=== PATIENT | female | born 1985 | race Caucasian/White ===

== ENCOUNTER 2018-02-03 05:40 | Inpatient (IN) | payer OTHER ==
[2018-02-03] MEDS ORDERED: CITRIC ACID/SODIUM CITRATE 30 ML UNIT-DOSE CUP PO ONE (06:15)
[2018-02-03 06:25] VITALS: BMI 23.9
[2018-02-03] MEDS ORDERED: ELECTROLYTE-148 SOLN 500 ML IV ONE (06:30)
[2018-02-03] MEDS ORDERED: ELECTROLYTE-148 SOLN 1,000 ML IV SCH (07:00)
--- NOTE | 2018-02-03 07:56 | HP ---
Past Medical History - Primary Care Physician PCP:: Jonathon Allison - Admission Chief Complaint: 39 weeks, previous c/s, request of repeat c/s History of Present Illness: 33 yo f 39 weeks, with previous c/s, requesting repeat c/s, risks discussed with patient. cx clp, vx -3 mi, fhr cat 1 History Source: Patient Limitations to Obtaining History: Language Barrier - Past Medical History ...: 2 ...Para: 1 ...Term: 1 ...: 0 ...Spon : 0 ...Induced : 0 ...Multiple Gestation: 0 ...LMP: 05/08/17 ... Weeks Gestation by Dates: 39 ...EDC by Dates: 02/12/18 ...EDC by Sono: 02/10/18 - Past Surgical History Past Surgical History: Yes: Hx Myomectomy: No Hx Transabdominal Cerclage: No - Smoking History Smoking history: Never smoked Have you smoked in the past 12 months: No - Alcohol/Substance Use Hx Alcohol Use: No - Social History Usual Living Arrangement: Yes: With Spouse History of Recent Travel: No Home Medications - Allergies Allergies/Adverse Reactions: Allergies Allergy/AdvReac Type Severity Reaction Status Date / Time No Known Allergies Allergy Verified 02/03/18 06:10 - Home Medications Home Medications: Ambulatory Orders NK [No Known Home Medication] 02/03/18 Review of Systems - Review of Systems Constitutional: reports: No Symptoms Eyes: reports: No Symptoms HENT: reports: No Symptoms Neck: reports: No Symptoms Cardiovascular: reports: No Symptoms Respiratory: reports: No Symptoms Gastrointestinal: reports: No Symptoms Genitourinary: reports: No Symptoms Breasts: reports: No Symptoms Reported Musculoskeletal: reports: No Symptoms Integumentary: reports: No Symptoms Neurological: reports: No Symptoms Endocrine: reports: No Symptoms Hematology/Lymphatic: reports: No Symptoms Psychiatric: reports: No Symptoms Physical Exam - Maternity Vital Signs: Vital Signs Temperature 98.3 F 02/03/18 05:40 Pulse Rate 98 H 02/03/18 05:40 Respiratory Rate 20 02/03/18 05:40 Blood Pressure 111/67 02/03/18 05:40 O2 Sat by Pulse Oximetry (%) Constitutional: Yes: Well Nourished, No Distress, Calm Eyes: Yes: WNL, Conjunctiva Clear, EOM Intact HENT: Yes: WNL, Atraumatic, Normocephalic Neck: Yes: WNL, Supple, Trachea Midline Cardiovascular: Yes: WNL, Regular Rate and Rhythm Breast(s): Yes: WNL - Abdominal Exam/OB Fundal Height: 40 Number of Fetuses: Single Presentation: Vertex Contractions: Yes Regularity: Irritability Intensity: Unaware Monitor Mode: External Heart Rate Location: [facility] Category: I Accelerations: Uniform Decelerations: None - Vaginal Exam/OB Vaginal Bleediing: No Speculum Exam: No Dilatation (cm): closed Effacement (%): 0 Amniotic Membrane Status: Intact Presentation: Vertex/Position Station: -3 - Physical Exam Musculoskeletal: Yes: WNL Edema: Yes Edema: LLE: Trace, RLE: Trace Deep Tendon Reflex Grade: Normal +2 Psychiatric: Yes: WNL Hemorrhage Risk Assessment - Risk Factors Medium Risk Factors: Yes: History of previous hemorrhage Risk Score: 2 Risk Level: High Risk Problem List - Problems (1) with 39 completed weeks gestation Code(s): Z3A.39 - 39 WEEKS GESTATION OF (2) Previous section complicating Code(s): O34.219 - MATERNAL CARE FOR UNSP TYPE SCAR FROM PREVIOUS DEL Assessment/Plan repeat c/s, risks c/s discussed , declined
[2018-02-03] MEDS ORDERED: ceFAZolin SODIUM 1 GM VIAL ONE ×3 (08:01→23:59)
[2018-02-03] MEDS ORDERED: OXYTOCIN 10 UNITS/ML VIAL ONE (08:12)
[2018-02-03] MEDS ORDERED: oxyCODONE HCL 5 MG TABLET PO PRN ×2 (08:56)
[2018-02-03] MEDS ORDERED: BENZOCAINE 20% 57 GM BOTTLE TP PRN (08:56)
[2018-02-03] MEDS ORDERED: METHYLERGONOVINE MALEATE 0.2 MG/1 ML AMP IM PRN (08:56)
[2018-02-03] MEDS ORDERED: IBUPROFEN 800 MG/8 ML IJ IVPB PRN (08:56)
[2018-02-03] MEDS ORDERED: BENZOCAINE 28 GM HEMORRHOIDAL OINTMENT PR PRN (08:56)
[2018-02-03] MEDS ORDERED: WITCH HAZEL 50% (TUCKS) 40 PAD/JAR PAD TP PRN (08:56)
[2018-02-03] MEDS ORDERED: diphenhydrAMINE HCL 25 MG CAPSULE (FP) PO PRN (08:56)
[2018-02-03] MEDS ORDERED: OXYTOCIN 20 UNITS in 0.9% NS 20 UNIT/1,000 ML INFUS.BAG IV SCH (09:00)
--- NOTE | 2018-02-03 09:37 | OP ---
DATE OF OPERATION: 02/03/2018 PREOPERATIVE DIAGNOSIS: , 39 weeks, previous section, request of repeat section. POSTOPERATIVE DIAGNOSIS: , 39 weeks, previous section, request of repeat section. PROCEDURE: Repeat low segment transverse section. SURGEON: Jonathon Allison MD EYEGLASS MAKER: DORA Taylor ANESTHESIA: Spinal. ANESTHESIOLOGIST: ESTIMATED BLOOD LOSS: 500 mL. OPERATION: The patient was taken to the operating room under adequate spinal anesthesia. Abdomen and perineum were prepped and draped. Pfannenstiel abdominal skin incision was made. Abdominal wall was cut layer by layer until peritoneum was exposed and incised. Upon entering the abdominal cavity, lower uterine segment was identified, and uterovesical fold of peritoneum was established, bladder was pushed down. Then, with the lower blade of the Fenwick retractor in the pelvis, a low transverse uterine incision was made. This incision extended laterally. Amniotic sac was entered. Clear fluid, head delivered from right occiput transverse position. Nasopharynx was suctioned, and live baby boy was delivered without any difficulty. Placenta was delivered manually. Uterine cavity was cleaned of all remaining tissue. Uterine incision was closed using 2 layers, 1st layer with 0 Biosyn continuous suture, the 2nd layer with 0 Biosyn imbricating the 1st layer. Bladder flap was closed with 0 Biosyn continuous suture. Both tubes and ovaries were checked, were normal. No active bleeding was seen. All the lap pad, sponge, and instrument counts were correct. Then, peritoneum was closed with 0 Biosyn continuous suture, muscles were brought together with interrupted sutures of 0 Biosyn, fascia was closed with 0 Biosyn continuous suture, subcutaneous fat with interrupted suture of 0 Biosyn, and the skin was closed with ousmane. Patient tolerated the procedure well, left the OR in good condition. Heather [id number]
[2018-02-03] MEDS: ONDANSETRON 4 MG/2 ML VIAL IVPUSH PRN ×2 (09:45→17:06)
[2018-02-03] MEDS ORDERED: DEXTROSE 5%-WATER - 50 ML IVPB ONE ×2 (15:27→23:59)
[2018-02-03] MEDS: CEFAZOLIN 1 GM in DEXTROSE 5%-WATER - 50 ML IVPB SCH (15:36)
[2018-02-03] MEDS: DEXTROSE 5%-LACTATED RINGERS 1,000 ML IV SCH (17:39)
[2018-02-04] MEDS: CEFAZOLIN 1 GM in DEXTROSE 5%-WATER - 50 ML IVPB SCH (00:04)
[2018-02-04] MEDS: ACETAMINOPHEN 325 MG TABLET (FP) PO PRN ×2 (08:18→22:00)
[2018-02-04] MEDS: SIMETHICONE 80 MG TAB.CHEW (FP) PO PRN ×2 (08:18→22:00)
[2018-02-04] MEDS: IBUPROFEN 600 MG TABLET (FP) PO PRN ×2 (08:18→22:00)
--- NOTE | 2018-02-04 08:25 | PN ---
Post Progress Note - Subjective Subjective: 33 yo Para 2 status post repeat , seen and evaluated. She's lying comfortably in bed. Post Day: 1 Type of Delivery: Repeat C/S Vital Signs: Vital Signs Temperature 98.2 F 02/04/18 08:05 Pulse Rate 80 02/04/18 08:05 Respiratory Rate 18 02/04/18 08:05 Blood Pressure 106/66 02/04/18 08:05 O2 Sat by Pulse Oximetry (%) Breast Exam: Yes: Soft Uterus: Yes: Fundus below umbilicus Incision: Yes: Dressing dry and intact Abdomen/GI: Yes: Abdomen soft, Tolerating PO Lochia: Yes: Rubra Lochia, amount: Small Extremities: Yes: Calves non-tender Perineum: Yes: Intact Activity: Ambulating Problem List - Problems (1) Status post repeat low transverse section Code(s): Z98.891 - HISTORY OF UTERINE SCAR FROM PREVIOUS SURGERY Assessment/Plan Status post repeat Stable Ambulation Analgesia as needed Continue routine post op care
[2018-02-04 08:48] LABS: BASO % 0.6 % (0-2.0); EOS % 0.2 % (0-4.5); HEMATOCRIT 38.3 % (32.4-45.2); HEMOGLOBIN 12.4 GM/dL (10.7-15.3); LYMPH % 9.6 % (8-40); MCH 29.5 pg (25.7-33.7); MCHC 32.4 g/dl (32.0-36.0); MEAN CELL VOLUME 90.9 fl (80-96); MONO % 9.9 % (3.8-10.2); NEUT % 79.7 % (42.8-82.8); PLATELET COUNT 216 K/MM3 (134-434); RBC 4.21 M/mm3 (3.60-5.2); RDW 13.9 % (11.6-15.6); WHITE BLOOD COUNT 15.5 K/mm3 (4.0-10.0)
[2018-02-04] MEDS ORDERED: BISACODYL 10 MG SUPP.RECT RC PRN (08:56)
[2018-02-04] MEDS ORDERED: DIPHTH,PERTUSS(ACELL),TET 0.5 ML DISP.SYRIN IM ONE (10:00)
[2018-02-04] MEDS: ENOXAPARIN NA (PORCINE) 40 MG/0.4 ML DISP.SYRIN SQ SCH (10:33)
[2018-02-04] MEDS: DEXTROSE 5%-LACTATED RINGERS 1,000 ML IV SCH (21:47)
--- NOTE | 2018-02-05 02:53 | PN ---
Post Progress Note - Subjective Subjective: 33 yo Para 2 status post repeat seen and evaluated. Doing well. Post Day: 2 Type of Delivery: Repeat C/S Vital Signs: Vital Signs Temperature 98.7 F 02/04/18 22:00 Pulse Rate 78 02/04/18 22:00 Respiratory Rate 18 02/04/18 22:00 Blood Pressure 106/68 02/04/18 22:00 O2 Sat by Pulse Oximetry (%) Breast Exam: Yes: Soft Uterus: Yes: Fundus Firm Incision: Yes: Dressing dry and intact Abdomen/GI: Yes: Abdomen soft, Tolerating PO Lochia: Yes: Rubra Lochia, amount: Small Extremities: Yes: Calves non-tender Activity: Ambulating - Labs Labs: CBC WBC 15.5 K/mm3 (4.0-10.0) H 02/04/18 08:00 RBC 4.21 M/mm3 (3.60-5.2) 02/04/18 08:00 Hgb 12.4 GM/dL (10.7-15.3) 02/04/18 08:00 Hct 38.3 % (32.4-45.2) 02/04/18 08:00 MCV 90.9 fl (80-96) 02/04/18 08:00 MCH 29.5 pg (25.7-33.7) 02/04/18 08:00 MCHC 32.4 g/dl (32.0-36.0) 02/04/18 08:00 RDW 13.9 % (11.6-15.6) 02/04/18 08:00 Plt Count 216 K/MM3 (134-434) 02/04/18 08:00 MPV 9.0 fl (7.5-11.1) 02/04/18 08:00 Absolute Neuts (auto) 12.4 K/mm3 (1.5-8.0) H 02/04/18 08:00 Neutrophils % 79.7 % (42.8-82.8) 02/04/18 08:00 Lymphocytes % 9.6 % (8-40) D 02/04/18 08:00 Monocytes % 9.9 % (3.8-10.2) 02/04/18 08:00 Eosinophils % 0.2 % (0-4.5) 02/04/18 08:00 Basophils % 0.6 % (0-2.0) 02/04/18 08:00 Nucleated RBC % 0 % (0-0) 02/04/18 08:00 Problem List - Problems (1) Status post repeat low transverse section Code(s): Z98.891 - HISTORY OF UTERINE SCAR FROM PREVIOUS SURGERY Assessment/Plan Status post repeat Stable Ambulation Analgesia as needed Continue routine post op care
--- NOTE | 2018-02-05 08:09 | PN ---
Progress Note, Physician Chief Complaint: s.p c section post op day one History of Present Illness: under spinal anesthesia and duramorph for post op pain control - Current Medication List Current Medications: Active Medications Acetaminophen (Tylenol -) 650 mg PO Q4H PRN PRN Reason: PAIN Last Admin: 02/04/18 22:00 Dose: 650 mg Benzocaine (Americaine 20% Norman -) 1 spray TP PRN PRN PRN Reason: Pain - Topical Benzocaine (Americaine Ointment -) 1 applic W[place] PRN PRN PRN Reason: Pain - Topical Bisacodyl (Dulcolax Suppository -) 10 mg RC PRN PRN PRN Reason: CONSTIPATION Diphenhydramine HCl (Benadryl -) 25 mg PO Q8H PRN PRN Reason: FOR ITCHING Enoxaparin Sodium (Lovenox -) 40 mg SQ DAILY NICOLE Last Admin: 02/04/18 10:33 Dose: 40 mg Ibuprofen (Motrin -) 600 mg PO Q4H PRN PRN Reason: PAIN LEVEL 1 - 3 Last Admin: 02/04/18 22:00 Dose: 600 mg Methylergonovine Maleate (Methergine Injection -) 0.2 mg IM Q4H PRN PRN Reason: EXCESSIVE BLEEDING Oxycodone HCl (Roxicodone -) 5 mg PO Q4H PRN PRN Reason: PAIN LEVEL 4 - 6 Oxycodone HCl (Roxicodone -) 10 mg PO Q4H PRN PRN Reason: PAIN LEVEL 7 - 10 Senna/Docusate Sodium (Pericolace -) 2 tablet PO HS PRN PRN Reason: CONSTIPATION Simethicone (Mylicon -) 80 mg PO Q4H PRN PRN Reason: GAS Last Admin: 02/04/18 22:00 Dose: 80 mg Witch Minerva/Glycerin (Tucks Pads -) 1 pad TP PRN PRN PRN Reason: Pain - Topical - Objective Vital Signs: Vital Signs Temperature 98.7 F 02/04/18 22:00 Pulse Rate 78 02/04/18 22:00 Respiratory Rate 18 02/04/18 22:00 Blood Pressure 106/68 02/04/18 22:00 O2 Sat by Pulse Oximetry (%) Constitutional: Yes: Well Nourished Cardiovascular: Yes: WNL Respiratory: Yes: WNL Gastrointestinal: Yes: WNL Labs: CBC, BMP 02/04/18 08:00 Assessment/Plan no adverse effects of anesthetic, no complaints, pain controlled,
[2018-02-05] MEDS: ENOXAPARIN NA (PORCINE) 40 MG/0.4 ML DISP.SYRIN SQ SCH (10:13)
[2018-02-05] MEDS: ACETAMINOPHEN 325 MG TABLET (FP) PO PRN ×2 (10:23→17:30)
[2018-02-05] MEDS: IBUPROFEN 600 MG TABLET (FP) PO PRN ×2 (10:23→17:30)
[2018-02-05] MEDS: SIMETHICONE 80 MG TAB.CHEW (FP) PO PRN ×2 (10:24→17:31)
[2018-02-05] MEDS ORDERED: SENNOSIDES/DOCUSATE COMBO (SENNA PLUS) TABLET (UD) PO PRN (22:00)
--- NOTE | 2018-02-06 06:18 | DS ---
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 Vital Signs: Vital Signs Temperature 98.6 F 02/05/18 22:00 Pulse Rate 62 02/05/18 22:00 Respiratory Rate 18 02/05/18 22:00 Blood Pressure 111/67 02/05/18 22:00 O2 Sat by Pulse Oximetry (%) Constitutional: Yes: Well Nourished Eyes: Yes: Conjunctiva Clear HENT: Yes: Atraumatic Neck: Yes: Supple Cardiovascular: Yes: Regular Rate and Rhythm Respiratory: Yes: Regular Gastrointestinal: Yes: Normal Bowel Sounds ...Rectal Exam: Yes: WNL Renal/: Yes: WNL Pelvis: Yes: WNL External Genitalia: Yes: Normal Vaginal Exam: Yes: Normal Cervix: Yes: Normal Uterus: Yes: Normal Wound/Incision: Yes: Well Approximated, [place] Intact Neurological: Yes: Alert, Oriented ...Motor Strength: WNL Psychiatric: Yes: Alert, Oriented Labs: CBC, BMP 02/04/18 08:00 Delivery - Delivery Type of Anesthesia: Spinal Episiotomy/Laceration: None EBL (cc): 600 Delivery, Single - Stages of Labor Date of Delivery: 02/03/18 Time of Delivery: 08:09 Time Placenta Delivered: 08:11 - Condition of Outside Operator/Case Maker Present: Yes Name: Jose Kenyon Infant Gender: Female Weight: 7 lb 6 oz Position: Left, OT Total Hours ROM (Hrs/Mins): 1 min - 1 Minute Total Score: 9 5 Minutes Total Score: 9 - Feeding Plan Initial Plan: Elected not to breastfeed exclusively throughout hospitalization Discharge Summary Reason For Visit: REPEAT Current Active Problems with 39 completed weeks gestation (Acute) Previous section complicating (Acute) Status post repeat low transverse section (Acute) Procedures: Principal: delivery Hospital Course: Routine post op care. No blood transfusion nor additional dosage of antibiotic required. Condition: Good - Instructions Diet, Activity, Other Instructions: Regular diet No driving, no lifting x 4 weeks F/U in clinic in 1 week Disposition: HOME - Home Medications Comprehensive Discharge Medication List: Ambulatory Orders NK [No Known Home Medication] 02/03/18
[2018-02-06 07:59] LABS: BASO % 0.8 % (0-2.0); HEMOGLOBIN 11.7 GM/dL (10.7-15.3); LYMPH % 14.2 % (8-40); MCH 30.5 pg (25.7-33.7); MCHC 33.6 g/dl (32.0-36.0); MEAN CELL VOLUME 90.9 fl (80-96); MEAN PLT VOLUME 8.9 fl (7.5-11.1); MONO % 10.1 % (3.8-10.2); NEUT % 73.9 % (42.8-82.8); PLATELET COUNT 251 K/MM3 (134-434); RBC 3.85 M/mm3 (3.60-5.2); RDW 13.4 % (11.6-15.6); WHITE BLOOD COUNT 8.6 K/mm3 (4.0-10.0)
[2018-02-06 09:31] VITALS: BP 118/73; PULSE 88; TEMP 98.5
[2018-02-06] MEDS: ENOXAPARIN NA (PORCINE) 40 MG/0.4 ML DISP.SYRIN SQ SCH (10:16)
[2018-02-06] MEDS: ACETAMINOPHEN 325 MG TABLET (FP) PO PRN (10:18)
--- NOTE | 2018-02-14 18:20 | PATH ---
Surgical Pathology Report Patient Name: DALJIT HERNANDEZ [facility]. Rec. #: [id number] /Age/Gender: 1985 (Age: 33) / F Account: [id number] Location: [facility] OBS/WOOD GANG SAWYER Taken: 02/03/2018 Received: 02/06/2018 Reported: 02/14/2018 Physicians: Jonathon Allison M.D. Specimen(s) Received PLACENTA Clinical History term for repeat Final Diagnosis PLACENTA: THIRD TRIMESTER PLACENTA. TRIVASCULAR CORD. MEMBRANES WITH NO DIAGNOSTIC ABNORMALITIES. Electronically Signed Samantha Alejandro M.D. Gross Description The specimen is received fresh labeled placenta and is a 453 gram, 16.5 x 13.5 x 2.4 cm. placenta with attached membranes and umbilical cord. The attached membranes are vasquez, translucent with focal opacities and insert marginally. The umbilical cord measures 21 cm. in length and averages 1 cm. in diameter. The cord inserts eccentrically, 3.5 cm. to the nearest margin. No true knots or strictures are identified. Cut surface of the umbilical cord reveals 3 vessels. The surface is madrigal blue with moderate fibrin deposition and appropriate caliber vessels. The maternal surface is red-brown with focal defects. Sectioning reveals red-brown, spongy parenchyma. No lesions are identified. Sap Basis Architect sections are submitted in three cassettes as follows: 1- membrane rolls and umbilical cord; 2-3- full thickness sections of placenta. /02/13/2018 saudi/02/13/2018
== END 2018-02-06 11:15 | disposition home or self-care (01) | DRG 540 ==
LOC: JLDR 05:40 → J3W 10:34
PROVIDERS: ADMIT Obstetrics & Gynecology; ATTEND Obstetrics & Gynecology
PROC: 10D00Z1 Extraction of Products of Conception, Low, Open Approach (ICD-10-PCS; principal; 2018-02-03)
DX: O34.219 Maternal care for unspecified type scar from previous cesarean delivery (principal); Z3A.39 39 weeks gestation of pregnancy; Z37.0 Single live birth
CPT/HCPCS: 36415; 85025; 88307-TC; 90686; 90715; G0008